=== PATIENT | male | born 1995 | race Caucasian/White ===

== ENCOUNTER → 2016-07-14 | Outpatient (CLI) | payer OTHER ==
--- NOTE | 2016-07-15 13:56 | MR ---
EXAM DATE: 07/14/16 PATIENT'S AGE: 20 Patient: JUANCARLOS COOK Facility: [place], [place] Site . Site : 1994 Study: MRI Knee Left [id number]/25/2017 1:30:44 PM Ordering Physician: Ewelina Valdez Final Report: HISTORY: Pain after injury. Technique: Routine knee protocol. Findings: Bones and soft tissues: There is patchy edema seen in the subcutaneous fat along the anteromedial aspect of the knee joint with a slight degree of marrow edema seen along the peripheral margin of the medial femoral condyle. There is a history of previous injury and these findings probably represent direct soft tissue and bony contusion. There are no findings for fracture or osteochondritis dissecans. No joint effusion or loose body is noted. There is a 4 centimeter posteromedial Cardoza`s cyst present. Medial compartment: Medial meniscus: The medial meniscus is intact and unremarkable. Articular cartilage: The articular cartilage surfaces are smooth and normally maintained. Lateral compartment: Lateral meniscus: The lateral meniscus is intact and unremarkable. Articular cartilage: The articular cartilage surfaces are smooth and normally maintained. Patellofemoral compartment: The articular cartilage surfaces are smooth and normally maintained. Ligaments: The anterior cruciate, posterior cruciate, medial collateral and lateral collateral ligaments are intact. Extensor mechanism: The quadriceps and patellar tendons as well as the medial and lateral patellar retinacula are intact. Impression: Evidence for likely soft tissue contusion along the anteromedial joint line with minimal bony contusion along the peripheral margin of the medial femoral condyle. No findings for fracture or meniscus tear. Dictated by Delonte Felton MD @ Jul 15 2016 8:19AM (Electronic Signature) Report Signed by Proxy and Original Signed Document filed in the Medical Record. [id number]
== END ==
LOC: MW.MRI 12:33
PROVIDERS: ATTEND General Practice
DX: S80.02XA Contusion of left knee, initial encounter (principal)
CPT/HCPCS: 73721-26-LT; 73721-LT